=== PATIENT | female | born 1975 | race Caucasian/White ===

== ENCOUNTER 2020-03-17 09:25 | Emergency (ER) | payer SELFPAY ==
[2020-03-17] VITALS (46 sets, daily range): BP systolic 125–160; BP diastolic 72–97; PULSE 71–104; RESP 11–30; TEMP 36.6; O2SAT 90–100
--- NOTE | ~2020-03-17 | CT_ITS ---
EXAMINATION: CTA chest PE protocol DATE: 03/17/2020 11:38 INDICATION: Shortness of breath, cough, chest pain. TECHNIQUE: Computed tomography angiography (CTA) of the chest was performed with 100 mL Omnipaque-350 intravenous contrast timed to evaluate the pulmonary arteries. Coronal maximum intensity projection 3D-reconstructions were created by the technologist. Automated exposure control and iterative reconst ruction technique were employed. Exam dose: 625.01 mGy-cm total exam DLP. COMPARISON: 03/17/2020 portable AP chest FINDINGS: There is diagnostic contrast enhancement of the pulmonary arteries; there is no evidence of central or segmental pulmonary artery embolism. There is limited evaluation of the peripheral pulmo nary arteries due to motion. There is bilateral dependent lower lobe atelectasis. No pulmonary infiltrate or consolidation is noted otherwise. Normal heart size. No pericardial or pleural effusion. No thoracic aortic aneurysm or dissection. No hilar or mediastinal mass lesion or lymphadenopathy. There is advanced healing of an anterior left 5th rib fracture. IMPRESSION: No evidence of central or segmental pulmonary embolism; limited evaluation of the periph eral pulmonary arteries due to motion Reviewed, dictated and finalized at [facility]. Reviewed, dictated and finalized at [facility]. IMPRESSION: No evidence of central or segmental pulmonary embolism; limited ev aluation of the peripheral pulmonary arteries due to motion
--- NOTE | ~2020-03-17 | CT_ITS ---
EXAMINATION: CT soft tissue neck wo con DATE: 03/17/2020 13:28 INDICATION: Change in throat and voice TECHNIQUE: Computed tomography (CT) of the neck was performed with 75 mL Omnipaque-350 intravenous co ntrast. Automated exposure control and iterative reconstruction technique were employed. The dose-gertrude gth product was 562.32 mGy-cm. COMPARISON: None FINDINGS: Left pectoral device with lead likely for vagal stimulation terminating along the anterior wall of th e left internal jugular vein. Thyroid in the bilateral submandibular and parotid glands are normal. There are scattered normal-sized lymph nodes in the neck, no pathologically enlarged lymphadenopathy. No masses identified. Airway is unremarkable. The epiglottis and aryepiglottic folds are normal. Vo hoang cords are symmetric. Orbits are unremarkable. Superior mediastinum is unremarkable. Visualized s inuses and mastoid aircells are well aerated. Lung apices are normal. Bones are unremarkable. All of the maxillary teeth are absent with exception of a single remaining left-sided molar which has a lar ge erosion and appears barely seated with significant surrounding alveolar ridge resorption. Multiple dental caries many large involving the remaining teeth at the mandible. IMPRESSION: 1. No etiology identified for reported change in throat and voice. 2. Likely vagal nerve stimulator lead terminating along the left internal jugular vein. 3. Extensive dental disease. Reviewed, dictated and finalized at [facility] IMPRESSION: 1. No etiology identified for reported change in throat and voice. 2. Likely vagal nerve stimulator lead terminating along the left internal jugul ar vein. 3. Extensive dental disease.
--- NOTE | ~2020-03-17 | CT_ITS ---
EXAMINATION: CT brain wo con DATE: 03/17/2020 11:32 INDICATION: Altered mental status. Seizures. TECHNIQUE: Computed tomography (CT) of the head was performed without intravenous contrast. The mA wa s adjusted according to patient size. Iterative reconstruction technique was employed. Exam dose: 60 5.33 mGy-cm total exam DLP. COMPARISON: None FINDINGS: No intracranial mass lesion or hemorrhage or cerebrovascular accident. No midline shifts or mass effects. Normal ventricular size. Normal ramos-white matter differentiation. No subdural or epid ural hematoma. No fracture or bone destruction of the cranial vault. The paranasal sinuses and mastoid air cells are normally developed and aerated. IMPRESSION: No significant abnormality Reviewed, dictated and finalized at [facility]. Reviewed, dictated and finalized at [facility]. IMPRESSION: No significant abnormality
--- NOTE | ~2020-03-17 | XR_ITS ---
XR chest 1V portable DATE: 03/17/2020 10:03 INDICATION: Altered mental status. History of seizures. TECHNIQUE: Portable AP chest on 03/17/2020 at 0956 hours COMPARISON: None FINDINGS: There is a left-sided generator device with lead extending into the left lower cervical are a. Normal heart size. No hilar or mediastinal enlargement. No pulmonary infiltrate or consolidation, ple ural effusion or pulmonary vascular congestion or pneumothorax. Diffuse osteopenia. IMPRESSION: No active cardiopulmonary disease Reviewed, dictated and finalized at [facility].
--- NOTE | 2020-03-17 09:32 | ECG_ITS ---
Measurements Intervals [place] Rate: 75 P: 36 KS: 180 QRS: 51 QRSD: 90 T: 44 QT: 400 QTc: 449 Interpretive Statements SINUS RHYTHM BASELINE WANDER- V3, V5 NORMAL ECG Electronically Signed On 03-17-2020 9:50:35 CDT by Salvador Cabrera D.O.
--- NOTE | 2020-03-17 09:34 | ED.SEIZURE ---
HPI - Seizure General Chief Complaint: Seizure Stated Complaint: POSSIBLE SEIZURE Time Seen by Provider: 03/17/20 09:26 Source: EMS Mode of arrival: EMS Limitations: altered mental status History of Present Illness HPI Narrative: This patient is a 44 year female with history of seizure disorder who presents via EMS for decreased responsiveness. EMS states they were called because her had difficulty waking patient. She had 3 seizures last night. She has a neurostimulator in place that uses to stop her seizures. Patient has some difficulty talking at baseline due to this stimulator. She complains of feeling sick. She complains of cough, sob. She also reports tongue pain and throat pain . She is suppose to be taking an unknown medication but she moved her from [place] . EMS states patient has been without her medications for a while. MD complaint: possible seizure Seizure History: Yes Related Data Allergies Allergy/AdvReac Type Severity Reaction Status Date / Time divalproex sodium Allergy Unknown Verified 03/17/20 09:32 [From [facility]] Review of Systems Review of Systems: All systems reviewed & are unremarkable except as noted in HPI and below Constitutional: Constitutional: Denies chills and Denies fever(s) ENT: Reports sore throat Cardiovascular: Cardiovascular: Reports chest pain Respiratory: Respiratory: Reports cough and Reports dyspnea Gastrointestinal: Gastrointestinal: Denies abdominal pain, Denies nausea and Denies vomiting [facility] Past Medical History Medical History (Updated 03/18/20 @ 00:00 by Background Daemon) Seizure disorder Exam Const: General: alert Orientation/consciousness: patient oriented x3 HENMT: Head: normocephalic and atraumatic Face and sinus: face symmetric Mouth: Yes Normal oral and palatal mucosa present, Yes lip normal, Yes tongue normal, Yes oropharynx normal and Yes moist mucous membranes Teeth and gingiva: gingiva abnormal edematous and poor dentition Throat: posterior oropharynx normal, tonsils normal and uvula midline Eyes: Pupils: Equal, round and reactive pupils present EOM: EOMs intact bilaterally Chest: Chest palpation & inspection: normal inspection of the chest Resp: Effort & Inspection: normal respiratory effort Auscultation: clear to auscultation bilaterally and diminished lung sounds Cardio: Rate: regular rate Rhythm: regular rhythm Heart sounds: no murmurs GI: GI Palp: Yes Soft to palpation and No Tenderness to palpation present (GI) Auscultation: normal bowel sounds Skin: General skin exam: normal color Rashes: no rashes Neuro: General: patient oriented x3 and moves all extremities Course Reevaluation(s) Reevaluation #1: Patient is been awake, alert and oriented x 3 in ER. Her only complaint is throat pain. Patient states she does not think it has anything to do with her stimulator. CT soft tissue neck did not see any airway issues. I offered to transfer patient to [facility] to [facility] that specializes in Vagal nerve stimulator but she declines. I have spoken on the phone several times to and he states this is a long standing problem with patient. They think it may be for attentions. Date: 03/17/20 Time: 17:21 Vital Signs Vital signs: Vital Signs Temperature 97.8 F 03/17/20 09:25 Pulse Rate 76 03/17/20 09:25 Respiratory Rate 16 03/17/20 09:25 Pulse Oximetry 99 03/17/20 09:25 Temperature 97.8 F 03/17/20 09:25 Pulse Rate 87 03/17/20 14:46 Respiratory Rate 20 03/17/20 14:46 Blood Pressure 148/95 H 03/17/20 14:46 Pulse Oximetry 100 03/17/20 14:46 MDM - Seizure Lab Data Attestation: I reviewed the patient's lab results. Result diagrams: 03/17/20 09:49 03/17/20 09:50 Labs: Lab Results 03/17/20 03/17/20 03/17/20 Range/Units 09:49 09:49 09:49 WBC 12.0 H (4.5-10.0) K/mm3 RBC 3.97 L (4.2-5.4) M/mm3 Hgb 12.2 (
[2020-03-17 10:01] LABS: Basophils Percent Auto 0.3 % (0.2-1.2); Eosinophils Absolute Auto 0.6 K/mm3 (0-0.3); Eosinophils Percent Auto 4.8 % (0-4.4); Hematocrit 35.7 % (37.0-47.0); Hemoglobin 12.2 g/dL (12.0-15.0); Immature Granulocyte Absolute 0.04 K/mm3 (0.00-0.031); Immature Granulocyte Percent A 0.3 % (0-0.5); Lymphocytes Absolute Auto 3.24 K/mm3 (0.9-3.2); Mean Corpuscular HGB Conc 34.2 g/dl (32-36); Mean Corpuscular Hemoglobin 30.7 pg (26-34); Mean Corpuscular Volume 89.9 fl (80-100); Mean Platelet Volume 10.5 fl (7.4-10.4); Monocytes Absolute Auto 0.7 K/mm3 (0.1-0.6); Monocytes Percent Auto 6.1 % (2.6-8.5); Neutrophils Absolute Auto 7.4 K/mm3 (1.3-6.7); Neutrophils Percent Auto 61.5 % (45.5-73.1); Platelet Count Result 305 k/mm3 (150-375); Red Blood Count 3.97 M/mm3 (4.2-5.4); Red Cell Distribution Width 14.5 % (11.5-14.5)
[2020-03-17 10:03] LABS: Glucose Point of Care 91 (65-105)
[2020-03-17 10:13] LABS: Ammonia < 9 umol/L (9-30); Ethanol < 10 mg/dL (<10)
[2020-03-17 10:14] LABS: Alanine Aminotransferase 14 U/L (4-35); Albumin Level 3.6 g/dL (3.5-5.1); Alkaline Phosphatase 101 U/L (38-126); Anion Gap 5 mmol/L (8-16); Aspartate Amino Transferase 21 U/L (14-36); Bilirubin,Total 0.5 mg/dL (0.2-1.3); Blood Urea Nitrogen 9 mg/dL (7-17); Calcium 8.6 mg/dL (8.4-10.2); Carbon Dioxide 25 mmol/L (22-30); Chloride 109 mmol/L (98-107); Estimated CRCL calculation 105 ml/min; Estimated Glomerular Filt Rate > 60; Glucose 89 mg/dL (65-105); Potassium 3.3 mmol/L (3.4-5.0); Sodium 139 mmol/L (137-145)
[2020-03-17 10:16] LABS: Creatine Kinase 104 U/L (30-135)
[2020-03-17 10:39] LABS: Add Urine Microscopic? YES; Appearance Urine Clear (Clear); Bilirubin Urine 1+ (Negative); Blood Urine Negative (Negative); Color Urine Yellow (Yellow); Glucose Urine UA Negative (Negative); Ketones Urine Trace mg/dL (Negative); Leukocyte Esterase Ur Negative LEU/UL (Negative); Mucus Urine Heavy /lpf; Nitrate Urine Negative (Negative); Protein Urine 1+ mg/dL (Negative); RBC Urine 0-2 /hpf (0-2); Squamous Epithelial Cell Urine Moderate /hpf (Few); WBC Urine 0-3 /hpf
--- NOTE | 2020-03-17 10:40 | PC.NURSE ---
Attempted to contact to get a med list. Number given to ems is invalid.
[2020-03-17 10:41] LABS: CRP 2.5 mg/dL (<1.0)
[2020-03-17 10:50] LABS: Specific Grav Ur 1.031 (1.001-1.035)
[2020-03-17 10:50] LABS: Troponin I < 0.012 ng/mL (0.000-0.034)
[2020-03-17 10:52] LABS: Barbiturate Screen Urine Negative (Negative); Benzodiazepines Screen Urine Negative (Negative)
[2020-03-17 10:52] LABS: D Dimer 0.54 ug/mL (<0.48)
[2020-03-17 10:59] LABS: Cannabinoid Screen Urine Negative (Negative); Cocaine Screen Urine Negative (Negative); Methadone Screen Urine Negative (Negative); Opiate Screen Urine Negative (Negative); Phencyclidine Screen Urine Negative (Negative)
[2020-03-17 11:17] LABS: Amphetamine Screen Urine Positive (Negative)
== END 2020-03-17 19:00 | disposition home or self-care (01) ==
PROVIDERS: Emergency Provider General Practice
DX: G40.909 Epilepsy, unspecified, not intractable, without status epilepticus (principal); J02.9 Acute pharyngitis, unspecified; Z96.82 Presence of neurostimulator; K02.9 Dental caries, unspecified
CPT/HCPCS: 36415; 51701; 70450; 70490; 71045; 71275; 80053; 80307; 81001; 82140; 82550; 84484; 85025; 85380; 86140; 87081; 87880; 93005; 99284; Q9967